=== PATIENT | female | born 1965 | race African-American/Black ===

== ENCOUNTER 2018-04-11 12:17 | Emergency (ER) | payer OTHER, BC ==
[~2018-04-11] VITALS: Ht 162.6 cm; Wt 62.6 kg
[~2018-04-11 12:17] MED LIST: AMBIEN 5 MG TABL5 M1 PO; ASPIRIN EC81 M1 PO; BENTYL20 MG PO; BYDUREON2 MG; CLONAZEPAM 0.50.5 M1 PO; FARXIGA10 MG PO; GLUCOPHAGE XR500 MG PO; JANUVIA100 MG PO; LISINOPRIL10 MG PO; LISINOPRIL5 MG PO; MIRALAX255 GM PO; OMEGA-31000 M1 PO; SIMVASTATIN10 MG PO; VALIUM5 MG PO; VITAMIN D1000 UNI1 PO; ZEDIA PO; ZETIA10 MG PO; ZOLOFT100 MG PO; [UNRECOGNIZED DRUG - REMARK]
[2018-04-11] MEDS ORDERED: XANAX1 MG PO (12:26)
[2018-04-11] MEDS ORDERED: LIPITOR10 MG PO (12:27)
[2018-04-11] MEDS ORDERED: HUMALOG100 UNIT/1 SUBQ (12:28)
[2018-04-11] MEDS ORDERED: NAPROSYN500 MG PO (13:09)
[2018-04-11 13:47] VITALS: BP 133/88
== END 2018-04-11 13:47 | disposition home or self-care (01) ==
LOC: ER 12:17
DX: S93.401A Sprain of unspecified ligament of right ankle, initial encounter (principal); E11.9 Type 2 diabetes mellitus without complications; E78.5 Hyperlipidemia, unspecified; J45.909 Unspecified asthma, uncomplicated; Z90.710 Acquired absence of both cervix and uterus; F17.200 Nicotine dependence, unspecified, uncomplicated; Z88.1 Allergy status to other antibiotic agents; Z91.041 Radiographic dye allergy status; W00.0XXA Fall on same level due to ice and snow, initial encounter; Y93.89 Activity, other specified; Y92.89 Other specified places as the place of occurrence of the external cause; Y99.8 Other external cause status

== ENCOUNTER → 2018-12-31 | Outpatient (CLI) | payer OTHER ==
[~2018-12-31] MED LIST changes: +HUMALOG100 UNIT/1 SUBQ; +LIPITOR10 MG PO; +NAPROSYN500 MG PO; +XANAX1 MG PO
== END ==
LOC: ULTRA 15:38
DX: R22.2 Localized swelling, mass and lump, trunk (principal)

== ENCOUNTER → 2019-01-08 | Outpatient (CLI) | payer OTHER ==
[2019-01-08 07:40] LABS: CREATININE 0.8 mg/dL (0.6-1.0)
== END ==
LOC: MRI 06:49
PROVIDERS: Nurse Practitioner
DX: R22.2 Localized swelling, mass and lump, trunk (principal)